=== PATIENT | female | born 1950 | race Caucasian/White ===

== ENCOUNTER 2018-07-29 17:56 | Inpatient (IN) | payer MEDICARE ==
[~2018-07-29] VITALS: Ht 165.1 cm; Wt 103.9 kg
[2018-07-29] MEDS ORDERED: ASPIRIN 325MG EC TAB 325 MG TABLET.DR PO ONE (18:34)
[2018-07-29] MEDS ORDERED: NITROGLYCERIN 1GM/1 INCH PACKET TD ONE (18:34)
[2018-07-29 18:39] LABS: EOSINOPHILS % (AUTO) 2.4 % (0.0-8.0); HEMATOCRIT 38.8 % (36-48); LYMPHOCYTES % (AUTO) 11.3 % (21.0-51.0); MEAN CORPUSCULAR HEMOGLOBIN 29.4 pg (27.0-33.0); MEAN CORPUSCULAR HGB CONC 33.2 g/dL (32.0-36.0); MEAN CORPUSCULAR VOLUME 88.5 fL (79-99); MONOCYTES % (AUTO) 8.5 % (3.0-13.0); NEUTROPHILS % (AUTO) 76.8 % (40.0-77.0); PLATELET COUNT (AUTO) 290 K/uL (130-400); RED BLOOD CELL COUNT(AUTO) 4.38 MIL/uL (4.00-5.50); RED CELL DISTRIBUTION WIDTH 13.9 % (11.0-15.5); WHITE BLOOD COUNT (AUTO) 11.2 K/uL (4.8-10.8)
[2018-07-29] MEDS ORDERED: ONDANSETRON HCL 4 MG/2 ML VIAL ONE (18:45)
[2018-07-29 18:55] LABS: CREATININE 1.1 mg/dL (0.5-1.5); POTASSIUM 3.8 mmol/L (3.5-5.1)
[2018-07-29 18:59] LABS: ALBUMIN 3.6 g/dL (3.5-5.0); BILIRUBIN,TOTAL 0.7 mg/dL (0.2-1.0); TOTAL PROTEIN, SERUM 7.6 g/dL (6.0-8.3)
[2018-07-29 19:06] LABS: APPEARANCE,URINE Cloudy (CLEAR); BILIRUBIN,URINE Negative (NEGATIVE); COLOR,URINE Yellow (YELLOW); GLUCOSE, URINE (UA) Negative (NEGATIVE); KETONES,URINE Negative (NEGATIVE); LEUKOCYTE ESTERASE ,URINE Moderate (NEGATIVE); NITRATE,URINE Positive (NEGATIVE); OCCULT BLOOD,URINE Negative (NEGATIVE); PH,URINE 6.5 (5.0-8.0); PROTEIN,URINE Negative (NEGATIVE)
[2018-07-29] MEDS ORDERED: NITROGLYCERIN 0.4 MG SL TAB SL ONE (19:51)
[2018-07-29 19:52] LABS: BACTERIA,URINE Moderate /HPF (None Seen); RBC,URINE 0-1 /HPF (0-1); SQUAMOUS EPITHELIAL CELL,UR Few /HPF (0-2)
[2018-07-29] MEDS ORDERED: IOHEXOL 350 MG/ML 100ML INFUS..BTL IV ONE (20:18)
[2018-07-29] MEDS ORDERED: CEFTRIAXONE SODIUM 1 GM ONE (20:21)
[2018-07-29] MEDS ORDERED: ACETAMINOPHEN 325 MG TAB PO PRN ×2 (21:45)
[2018-07-29] MEDS ORDERED: SODIUM CHLORIDE 0.9% 1000ML 1,000 ML IV SCH (21:45)
[2018-07-29] MEDS ORDERED: ONDANSETRON HCL 4 MG/2 ML VIAL IV PRN (21:45)
[2018-07-29 21:46] LABS: INR 0.9 (0.85-1.15); PARTIAL THROMBOPLASTIN TIME 29.6 SEC (26.3-35.5); PROTHROMBIN TIME 9.5 SEC (9.6-11.6)
[2018-07-29] MEDS ORDERED: IPRATROPIUM 0.5 MG/2.5 ML INH IH ONE (21:47)
[2018-07-29 22:00] LABS: AMPHET/METH SCREEN,URINE NEGATIVE (NEGATIVE); BARBITURATE SCREEN, URINE NEGATIVE (NEGATIVE); BENZODIAZEPINES SCREEN,URINE NEGATIVE (NEGATIVE); CANNABINOID SCREEN,URINE NEGATIVE (NEGATIVE); COCAINE SCREEN,URINE NEGATIVE (NEGATIVE); OPIATE SCREEN,URINE NEGATIVE (NEGATIVE); PHENCYCLIDINE SCREEN,URINE NEGATIVE (NEGATIVE)
[2018-07-29] MEDS: IPRATROPIUM 0.5 MG/2.5 ML INH IH SCH (22:41)
[2018-07-29 23:29] LABS: CREATINE KINASE, TOTAL 149 U/L (21-232); MYOGLOBIN 72 ng/mL (10-92); TROPONIN I < 0.04 ng/mL (0.00-0.06)
[2018-07-30] VITALS (7 sets, daily range): BP systolic 119–132; BP diastolic 63–86
[2018-07-30] MEDS: IPRATROPIUM 0.5 MG/2.5 ML INH IH SCH ×4 (02:30→13:45)
--- NOTE | 2018-07-30 04:05 | NUR ---
Admission note: Received pt from ER via stretcher. Fully awake and responsive. Placed in bed comfortably. VS checked and recorded. Assessment done. Oriented to room and use of call light. Policies and procedures explained. Verbalized understanding. Orders checked and carried out. Plan of care initiated. Hooked to TELE with result of Sinus Tachycardia. Observed for any unusual changes. Cared for and needs attended. Denies feeling of discomfort. No apparent distress noted.
[2018-07-30] MEDS: SODIUM CHLORIDE 0.9% 1000ML 1,000 ML IV SCH ×3 (04:53→16:56)
[2018-07-30] MEDS: ZOSYN 3.375GM+NS 50ML 50 ML IV SCH ×3 (04:54→20:32)
[2018-07-30 06:38] LABS: HEMATOCRIT 34.4 % (36-48); MEAN CORPUSCULAR HEMOGLOBIN 29.7 pg (27.0-33.0); MEAN CORPUSCULAR HGB CONC 33.4 g/dL (32.0-36.0); MEAN CORPUSCULAR VOLUME 88.9 fL (79-99); PLATELET COUNT (AUTO) 235 K/uL (130-400); RED BLOOD CELL COUNT(AUTO) 3.87 MIL/uL (4.00-5.50); RED CELL DISTRIBUTION WIDTH 13.8 % (11.0-15.5); WHITE BLOOD COUNT (AUTO) 8.3 K/uL (4.8-10.8)
[2018-07-30 07:04] LABS: ALANINE AMINOTRANSFERASE 17 U/L (12-78); ALBUMIN 2.9 g/dL (3.5-5.0); ASPARTATE AMINOTRANSFERASE 13 U/L (10-37); BILIRUBIN,TOTAL 0.7 mg/dL (0.2-1.0); CARBON DIOXIDE 25 mmol/L (21-32); CHLORIDE 104 mmol/L (101-111); CHOLESTEROL 156 mg/dL (<200); CREATINE KINASE, TOTAL 133 U/L (21-232); GLOMERULAR FILTR. RATE CALC 58 mL/min (>60); GLUCOSE,RANDOM 100 mg/dL (70-105); HDL CHOLESTEROL 46 mg/dL (35-85); LDL DIRECT 93 mg/dL (0-99); MYOGLOBIN 79 ng/mL (10-92); POTASSIUM 4.1 mmol/L (3.5-5.1); SODIUM SERUM 140 mmol/L (136-145); TOTAL PROTEIN, SERUM 6.5 g/dL (6.0-8.3); TRIGLYCERIDES 140 mg/dL (30-200); TROPONIN I < 0.04 ng/mL (0.00-0.06); UREA NITROGEN, BLOOD 26 mg/dL (7-18)
[2018-07-30 08:42] LABS: EOSINOPHILS % (MANUAL) 5 % (1-6); LYMPHOCYTES % (MANUAL) 12 % (22-44); MAN.DIFF COMMENT-IMPRESSION MANUAL DIFFERENTIAL; MONOCYTES % (MANUAL) 6 % (2-9); PLATELET MORPHOLOGY COMMENT ADEQUATE; REACTIVE LYMPHOCYTES 1 % (0-0); SEGMENTED NEUTROPHILS % 76 % (40-70)
[2018-07-30] MEDS ORDERED: PNEUMOCOCCAL VACCINE POLYVALENT 0.5 ML/VIAL [PPV] IM ONE (09:00)
[2018-07-30] MEDS: FAMOTIDINE 20MG TAB 20 MG TAB PO SCH ×2 (09:49→20:33)
[2018-07-30] MEDS: ASPIRIN 325 MG TABLET PO SCH (09:49)
[2018-07-30] MEDS: METOPROLOL TARTRATE 25 MG TAB PO SCH ×2 (09:49→21:04)
[2018-07-30] MEDS: ENOXAPARIN SODIUM 30 MG/0.3 ML SQ SCH (09:51)
[2018-07-30] MEDS ORDERED: CALC-910 PO (10:06)
[2018-07-30] MEDS ORDERED: LISI-613 PO (10:06)
[2018-07-30] MEDS ORDERED: NITR0.4T50 SL (10:06)
[2018-07-30] MEDS ORDERED: LISI1TAB13 PO (10:06)
[2018-07-31] VITALS (7 sets, daily range): BP systolic 108–147; BP diastolic 69–89
[2018-07-31] MEDS: SODIUM CHLORIDE 0.9% 1000ML 1,000 ML IV SCH (02:22)
[2018-07-31 04:41] LABS: HEMATOCRIT 33.6 % (36-48); MEAN CORPUSCULAR HEMOGLOBIN 29.4 pg (27.0-33.0); MEAN CORPUSCULAR HGB CONC 33.2 g/dL (32.0-36.0); MEAN CORPUSCULAR VOLUME 88.5 fL (79-99); PLATELET COUNT (AUTO) 238 K/uL (130-400); RED CELL DISTRIBUTION WIDTH 13.9 % (11.0-15.5); WHITE BLOOD COUNT (AUTO) 7.1 K/uL (4.8-10.8)
[2018-07-31] MEDS: ZOSYN 3.375GM+NS 50ML 50 ML IV SCH (04:57)
[2018-07-31 05:05] LABS: CREATININE 1.1 mg/dL (0.5-1.5); POTASSIUM 3.8 mmol/L (3.5-5.1)
[2018-07-31] MEDS: ASPIRIN 325 MG TABLET PO SCH (08:33)
[2018-07-31] MEDS: METOPROLOL TARTRATE 25 MG TAB PO SCH (08:33)
[2018-07-31] MEDS: FAMOTIDINE 20MG TAB 20 MG TAB PO SCH (08:37)
[2018-07-31] MEDS: ENOXAPARIN SODIUM 30 MG/0.3 ML SQ SCH (08:37)
[2018-07-31] MEDS ORDERED: METO25 PO (13:19)
[2018-07-31] MEDS ORDERED: SULF1TAB42 PO (13:19)
--- NOTE | 2018-07-31 15:55 | NUR ---
DISCHARGE PATIENT GIVEN DISCHARGE INSTRUCTIONS AND EDUCATION, INCLUDING SIDE EFFECTS ON NEW PRESCRIBED MEDICATIONS AND FOLLOW UP APPOINTMENTS. PATIENT VERBALIZED UNDERSTANDING OF ALL EDUCATION GIVEN VIA TEACH BACK. NO QUESTIONS OR CONCERNS VOICED AT THIS TIME. IV DISCONTINUED, CATHETER INTACT. MOTOR RUNNER DISCONTINUED, MONITOR AWARE. NO SIGNS OF DISTRESS NOTED UPON DISCHARGE. VITALS TICO. PATIENT LEFT VIA WHEELCHAIR TO PRIVATE CAR. ALL BELONGINGS TAKEN WITH. Addendum: 07/31/18 at 1559 by DEMIAN EMANUEL RN RN Amended: Links added.
--- NOTE | 2018-08-01 07:43 | NUR ---
IA/CM NOTES MET W PT, ALONE, AAOX3, ARTEMIO SPKING; INDP OF ADLS, LIVES WITH SPOUSE JAMIL WHO WILL PORVIDE TRANSPORT HOME, NOT LISTED ON FACE SHEET BUT SEES DR[facility] GRISSOM IN [facility], FEELS SAFE TO RETURN HOME Addendum: 08/01/18 at 0745 by ERIC FRANKLIN RN CM Amended: Links added.
== END 2018-07-31 15:56 | disposition home or self-care (01) | DRG 312 ==
LOC: EDH 17:56 → EDHIP 21:32 → 4CH 07-30 04:05
PROVIDERS: ADMIT Internal Medicine; ATTEND Internal Medicine
PROC: 3E0234Z Introduction of Serum, Toxoid and Vaccine into Muscle, Percutaneous Approach (ICD-10-PCS; principal; 2018-07-30)
DX: I95.1 Orthostatic hypotension (principal); N39.0 Urinary tract infection, site not specified; J98.11 Atelectasis; K44.9 Diaphragmatic hernia without obstruction or gangrene; I10 Essential (primary) hypertension; E66.9 Obesity, unspecified; E87.6 Hypokalemia; W18.30XA Fall on same level, unspecified, initial encounter; B96.20 Unspecified Escherichia coli [E. coli] as the cause of diseases classified elsewhere; Y92.009 Unspecified place in unspecified non-institutional (private) residence as the place of occurrence of the external cause; Z79.899 Other long term (current) drug therapy; Z80.1 Family history of malignant neoplasm of trachea, bronchus and lung; Y93.89 Activity, other specified; Y99.8 Other external cause status; Z68.38 Body mass index [BMI] 38.0-38.9, adult; Z23 Encounter for immunization
CPT/HCPCS: 36415; 70450; 71045; 71046; 71275; 73080; 73562; 80048; 80053; 80061; 80305; 81001; 82550; 83605; 83735; 83874; 84443; 84484; 85025; 85027; 85378; 85610; 85730; 87040; 87077; 87088; 87186; 90732; 93005; 93880; 93970; 94640; 94664; G0378; J0696; J1650; J2405; J2543; Q9967